=== PATIENT | male | born 1960 | race Caucasian/White ===

== ENCOUNTER 2024-05-17 21:28 | Emergency (ER) | payer BC, SELFPAY ==
[2024-05-17 21:34] VITALS: BP 178/76
--- NOTE | 2024-05-17 21:35 | ED.GENMED ---
ED Provider Triage
-
Patient seen by provider in Triage?: Seen in Triage
Attestation: A medical screening examination has been initiated by a qualified medical provider. Based on the assessment performed at this time, it has been determined that an emergent medical condition may exist and the patient has been informed
that further medical evaluation and possible additional diagnostic testing may be needed.
HPI: 64-year-old male presenting to the emergency department for evaluation of bilateral chest discomfort that started around 2 PM today while at work. No other associated symptoms. 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 Reports good compliance with Plavix
and aspirin. Pain little bit more mild now. Does note recent viral URI-like symptoms about 3 weeks ago. No other concerns. EKG done from triage shows nonspecific ST changes. Labs ordered
GENERAL: Alert , in no apparent distress
EYE: No visual abnormalities.
NECK: Trachea midline
ENT: No visible abnormalities.
LUNGS: No acute respiratory distress
NEUROLOGICAL: Alert and oriented
SKIN: Skin intact. No visible changes.
MUSCULOSKELETAL: Moving extremities normally
PSYCH: Normal and appropriate interaction.
This is a medical evaluation conducted in person to initiate diagnostic evaluation and provide initial therapeutics. Please see further documentation by the treating clinician.
History of Present Illness
General
Chief Complaint: Cardiac Symptoms
History of Present Illness
History of Present Illness:
.
Phy Exam
Physical Exam
Physical Exam:
.
Course
Orders/Labs/Results
Orders:
Orders
05/17/24 21:29
ECG [Electrocardiogram (*1)] Urgent
Reason for Study: Chest Pain
EKG- Treatment ONCE
05/17/24 21:45
Complete Blood Count/With Diff Urgent
Comprehensive Metabolic Panel Urgent
Troponin I Urgent
Abnormal Lab Results
05/17/24
21:45
RBC 4.63 L 10^6/uL
(4.70-6.10)
MCH 31.5 H pg
(27.0-31.0)
Monocytes % 10.5 H %
(1.7-9.3)
Glucose 122 H mg/dl
(70-99)
05/17/24 21:45
05/17/24 21:45
Vital Signs
Initial and Last Documented VS:
Initial Vital Signs
Temp Pulse Resp BP Pulse Ox
98.1 F 74 22 178/76 100
05/17/24 21:34 05/17/24 21:34 05/17/24 21:34 05/17/24 21:34 05/17/24 21:34
Last Documented Vital Signs
Temp Pulse Resp BP Pulse Ox
98.1 F 56 16 179/87 99
05/17/24 21:34 05/18/24 02:10 05/18/24 02:10 05/18/24 02:10 05/18/24 02:10
*Critical Care Note
Total Time (30-74mins, 75-104mins- exclusive of procedures): Not Applicable
ED Attending Note
-
Portions of this chart may have been created with voice recognition software.� Occasional wrong word or��sound alike� substitutions may have occurred due to the inherent limitations of voice recognition software.
Discharge Plan
Departure
Patient Disposition: Left Without Treatment
Referrals:
Inez Franco NP [Family Provider] -
Interventions
Interventions:
*Risk Screen - Suicide Last Done: 05/17/24 21:34
*Neglect/Abuse Screening Last Done: 05/17/24 21:34
*Nursing Disposition Last Done: 05/18/24 02:13
ED- Pulmonary Assessment Last Done: 05/18/24 02:13
ED- Cardiac Assessment Last Done: 05/18/24 02:13
Discharge Date and Time
Discharge Date/Time: 05/18/24 02:13
Print Language: SETSWANA
[2024-05-17 21:52] LABS: % Basophils 0.7 % (0-2); % Eosinophils 2.5 % (0-6); % Immature Granulocytes 0.2 % (0-0.5); % Lymphocytes 32.3 % (20.5-51.1); % Monocytes 10.5 % (1.7-9.3); % Neutrophils 53.8 % (42.2-75.2); Absolute Eosinophils 0.1 10^3/uL (0-0.7); Absolute Lymphocytes 1.8 10^3/uL (1.2-3.4); Absolute Monocytes 0.6 10^3/uL (0.1-0.6); Hematocrit 42.2 % (39.0-52.0); Hemoglobin 14.6 g/dL (13.0-18.0); Mean Corp Hgb Conc. 34.6 g/dL (33.0-37.0); Mean Corpuscular Hgb 31.5 pg (27.0-31.0); Mean Corpuscular Volume 91.1 fL (80.0-94.0); Mean Platelet Volume 8.9 fL (7.4-10.4); Nucleated Red Blood Cells % 0 % (-); Platelet Count 321 10^3/uL (130-400); Red Blood Cell Count 4.63 10^6/uL (4.70-6.10); Red Cell Dist. Width 12.7 % (11.5-14.5); White Blood Cell Count 5.5 10^3/uL (4.8-10.8)
[2024-05-17 22:11] LABS: ALT (SGPT) 32 U/L (0-50); AST (SGOT) 26 U/L (17-59); Albumin 4.1 g/dl (3.5-5.0); Alkaline Phosphatase 59 U/L (38-126); Blood Urea Nitrogen 18 mg/dl (9-20); Calcium 9.4 mg/dl (8.4-10.2); Carbon Dioxide 27 mmol/L (22-30); Chloride 101 mmol/L (98-107); Glucose 122 mg/dl (70-99); Potassium 4.3 mmol/L (3.5-5.1); Sodium 136 mmol/L (135-145); Total Bilirubin 0.7 mg/dl (0.2-1.3); Total Protein 6.5 g/dl (6.3-8.2); eGFR > 60.00
[2024-05-17 22:15] LABS: Troponin I < 0.012 ng/ml
[2024-05-18 00:30] VITALS: BP 145/70
[2024-05-18 02:10] VITALS: BP 179/87
--- NOTE | 2024-05-18 02:13 | EDRN ---
RN went to draw repeat troponin level and pt said he wasn't sure if he wants to wait any more. This RN repeated pt's VS - three bps taken. Two in R arm with one in 170's and second one in low 180's. Third BP L arm documented 179/87. Pt says he
had hx htn, takes htn medication in the morning and believes his bp is elevated at this time because he is tired and cold. Pt denies pain. Pt says he has a discomfort in L side of his chest when he pushes on the area and believes it is healing
scar tissue from having his chest cut open in December. No sob. Discussed troponin test. Pt appreciative of care provided and says he feels well and wants to go home. 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
morning for follow up. Pt given Declining of Medical Care form, asked to read it and he signed it while expressing thanks for care tonight. Pt will return if symptoms worsen or change.
== END 2024-05-18 02:13 | disposition left against medical advice (07) ==
LOC: EMR 21:28
PROVIDERS: Physician Assistant Medical; FAMILY PHYSICIAN Nurse Practitioner Family
DX: R07.89 Other chest pain (principal); Z53.21 Procedure and treatment not carried out due to patient leaving prior to being seen by health care provider
CPT/HCPCS: 99281; 80053; 84484; 85025; 93005